=== PATIENT | female | born 2000 | race Caucasian/White ===

== ENCOUNTER → 2019-11-17 | Outpatient (CLI) | payer OTHER ==
--- NOTE | 2019-11-17 15:42 | XR ---
EXAMINATION TYPE: XR lumbar spine 2 or 3V DATE OF EXAM: 11/17/2019 Comparison: None Clinical History: 19-year-old female lifting injury, right-sided pain S39.0120 Findings: Mild facet arthropathy L5-S1. Minimal disc interspace narrowing at L5-S1. Vertebral body heights are preserved and alignment is maintained. Impression: Mild facet arthropathy and degenerative disc disease at L5-S1. No vertebral compression collapse or m alalignment.
== END | disposition home or self-care (01) ==
LOC: RAD 15:20
PROVIDERS: ATTEND Emergency Medicine
DX: M47.897 Other spondylosis, lumbosacral region (principal)
CPT/HCPCS: 72100

== ENCOUNTER → 2019-12-23 | Outpatient (CLI) | payer OTHER ==
--- NOTE | 2019-12-23 22:14 | MR ---
EXAMINATION TYPE: MR lumbar spine wo con DATE OF EXAM: 12/23/2019 COMPARISON: None HISTORY: Strain, lifting injury CONTRAST: 0 mL intravenous Gadavist. TECHNIQUE: Multiplanar, multisequence images of the lumbar spine were acquired. FINDINGS: L5-S1: There is a large broad-based central and slightly left paracentral disc bulge. No thecal sac c ompression or exiting nerve root compression is identified. No spinal canal stenosis is present. This extends beyond the endplate of S1 compatible with subligamentous disc herniation. L4-L5: No significant disc bulge or disc herniation. No spinal canal stenosis. No foraminal stenosi s. L3-L4: No significant disc bulge or disc herniation. No spinal canal stenosis. No foraminal stenosi s. L2-L3: No significant disc bulge or disc herniation. No spinal canal stenosis. No foraminal stenosi s. L1-L2: No significant disc bulge or disc herniation. No spinal canal stenosis. No foraminal stenosi s. T12-L1: No significant disc bulge or disc herniation. No spinal canal stenosis. No foraminal stenos is. IMPRESSION: 1. Subligamentous central and left paracentral disc herniation L5-S1 without sac compression or spina l canal stenosis.
== END | disposition home or self-care (01) ==
LOC: RADMRIMAIN 20:31
PROVIDERS: ATTEND Emergency Medicine
DX: M51.27 Other intervertebral disc displacement, lumbosacral region (principal)
CPT/HCPCS: 72148

== ENCOUNTER → 2020-09-05 | Outpatient (CLI) | payer OTHER ==
--- NOTE | 2020-09-06 03:48 | MR ---
EXAMINATION TYPE: MR lumbar spine wo con DATE OF EXAM: 09/05/2020 COMPARISON: 12/23/2019 HISTORY: Low back pain, hurt at work 1 month ago. Multiplanar multiecho imaging of the lumbar spine was performed without contrast. The lumbar vertebra have normal alignment. Disc spaces are fairly normal. Posterior elements are inta ct. There is no compression fracture. Lumbar nerve roots appear normal. The neural foramina are widel y patent. There is no lumbar paraspinal mass. The posterior elements are intact. IMPRESSION: Normal MR scan of the lumbar spine. No change compared to old exam.
== END | disposition home or self-care (01) ==
LOC: RADMRIMAIN 21:31
PROVIDERS: ATTEND Emergency Medicine
DX: M54.5 Low back pain (principal)
CPT/HCPCS: 72148

== ENCOUNTER → 2023-04-09 | Outpatient (CLI) | payer OTHER ==
--- NOTE | 2023-04-15 10:37 | MR ---
EXAMINATION TYPE: MR shoulder RT wo con DATE OF EXAM: 04/09/2023 COMPARISON: None HISTORY: Right shoulder pain for 5 months due to lifting heavy object. TECHNIQUE: Multiplanar, multisequence imaging of the right shoulder is performed without contrast. FINDINGS: Exam is mildly limited due to the patient's body habitus. The osseous structures are intact and there is no bone contusion or fracture. There is no degeneration of the glenohumeral joint. There is mild degenerative changes of the AC joint but there is no shoulder impingement. There are small rim rent tears of the infraspinatus and supraspinatus tendons without retraction of m usculotendinous junctions.. There is diffuse thickening of the subscapularis tendon consistent with t endinosis but no discrete tear. The biceps tendon could not be definitively localized within the bicipital groove and the possibility of medial dislocation of the long head of the biceps is not excluded. Cartilaginous labrum is intact . There is no subacromial or subdeltoid bursitis. IMPRESSION: 1. Rim rent tears of the supraspinatus and infraspinatus tendons without retraction of the musculoten dinous junctions. 2. Mild degenerative change of the AC joint but no significant shoulder impingement. 3. Cannot exclude medial dislocation of the biceps tendon. 4. Intact cartilaginous labrum.
== END | disposition home or self-care (01) ==
LOC: RADMRIMAIN 19:18
PROVIDERS: ATTEND Orthopaedic Surgery Sports Medicine
DX: S46.011D Strain of muscle(s) and tendon(s) of the rotator cuff of right shoulder, subsequent encounter (principal); M19.011 Primary osteoarthritis, right shoulder